=== PATIENT | male | born 1950 | race Caucasian/White ===

== ENCOUNTER → 2016-12-25 | Outpatient (CLI) | payer BC | END | disposition short-term general hospital (02) | LOC: CLORTH 07:33 | DX: M25.562 Pain in left knee (principal); M72.0 Palmar fascial fibromatosis [Dupuytren] ==

== ENCOUNTER 2017-04-09 22:14 | Emergency (ER) | payer BC ==
[~2017-04-09] VITALS: Ht 167.6 cm; Wt 72.6 kg
== END 2017-04-10 00:20 | disposition short-term general hospital (02) ==
LOC: ER 22:14
DX: R07.9 Chest pain, unspecified (principal); R09.1 Pleurisy; E29.1 Testicular hypofunction; F32.9 Major depressive disorder, single episode, unspecified; Z88.2 Allergy status to sulfonamides; Z90.49 Acquired absence of other specified parts of digestive tract; Z90.89 Acquired absence of other organs; Z79.899 Other long term (current) drug therapy; Z98.890 Other specified postprocedural states
CPT/HCPCS: A9270; J1885